=== PATIENT | male | born 1980 | race Caucasian/White ===

== ENCOUNTER 2024-01-13 04:24 | Emergency (ER) | payer SELFPAY ==
[2024-01-13 04:27] VITALS: BP 143/95; PULSE 83; RESP 16; TEMP 36.5; O2SAT 98; BMI 16.9
--- NOTE | 2024-01-13 04:39 | HMH.EDGENADL ---
Discharge Plan Disposition Patient Disposition: Home, Self-Care Referrals Follow up/Referrals: Provider,Francisco, [Primary Care Provider] - See instructions Activity Restrictions/Add. Instructions Additional Instructions/Restrictions: Please follow-up with your primary care provider. Please return to the emergency department if you develop any new or worsening symptoms or become concerned for your health. Clinical Impressions Clinical Impression: Acute pain of left foot Stand Alone Forms Stand Alone Forms: Work/School Release Discharge ED Provider: Johan Whitt General Adult HPI General Chief complaint: PAIN Stated complaint: left foot pain Time Seen by Provider: 01/13/24 04:25 Mode of Arrival: Ambulatory Source of Information: Patient Limitations: No Limitations Description of Symptoms (Recalled from ER Triage Doc. by RN): Pt presents to ED for L foot pain. NKI Pt is A&O*4 History of Present Illness HPI narrative: 43-year-old male presents with atraumatic left foot pain for the last day or so. He denies any recent trauma, denies sprained ankle laceration etc. He denies any history of plantar fasciitis. She reports that the pain started initially on the bottom of his foot around in the balls of the feet . It now has moved up towards the ankle. 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 Related Data Allergies Allergy/AdvReac Type Severity Reaction Status Date / Time No Known Allergies Allergy Verified 01/13/24 04:37 [facility] Disclaimer: The information contained in this section may have been updated after the patient was seen, as this information can be updated by other users. Medical History (Updated 01/13/24 @ 04:41 by Johan Whitt MD) Diabetes Surgical History (Updated 01/13/24 @ 04:39 by Mary Hanson RN) Hx of appendectomy Social History Smoking Status: Current every day smoker alcohol intake: never current occupational status: employed Travel in the last 8 weeks: None ROS Obtained: Yes All systems reviewed & no additional complaints except as documented Physical Exam General General appearance: alert and in no apparent distress Head Head exam: atraumatic and normocephalic Eye Eye exam: Present normal appearance, PERRL and EOMI ENT ENT exam: Present normal oropharynx and normal external ear exam Neck Neck exam: Present normal inspection and full ROM Chest Chest inspection: Present normal inspection and symmetric chest wall rise; Absent tenderness Respiratory Respiratory exam: Present normal lung sounds bilaterally; Absent respiratory distress Cardiovascular Cardiovascular exam: Present regular rate and normal rhythm Abdominal Exam Abdominal exam: Present soft; Absent distention, tenderness or guarding Extremities Exam Extremities exam: Present normal inspection and other (Mild tenderness palpation of the plantar foot, no swelling, laceration, erythema, full range of motion of the ankle intact with some pain. Normal neurovascular function.); Absent edema or joint swelling Back Exam Back exam: Present normal inspection; Absent tenderness Neurological Exam Neurological exam: Present alert and oriented X3; Absent motor sensory deficit Psychiatric Psychiatric exam: Present normal affect and normal mood Skin Skin exam: Present warm, dry and normal color Lymphatic Lymphatic Findings: no adenopathy Medical Decision Making Medical Records Medical records reviewed: Yes I reviewed the patient's medical records. Chris Inquiry Pt receiving controlled substance: No Chris was queried for this patient: No Vital Signs: 01/13/24 04:27 01/13/24 04:49 Temperature 97.7 F 97.7 F Temperature Source Oral Pulse Rate 78 Pulse Rate [Left] 83 Respiratory Rate 16 16 Blood Pressure 143/95 H Blood Pressure [Right Arm] 143/95 H Blood Pressure Mean [Right Arm] 111 02 Sat by Pulse Oximetry 98 Oxygen Delivery Method Room Air Lab Data Lab results reviewed: Yes I reviewed the patient's lab results. 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 Exam is completely benign. Differential diagnosis includes but limited to fracture dislocation, overuse injury, arthritis, plantar fasciitis, gout. I offered the patient radiographs of the foot which he declined. I provided the patient instructions regarding symptomatic care and return precautions. Patient was given referral information for PCP. Procedures Risk/Benefits of Procedure(s) Were Explained: Yes Critical Care Critical Care Time Critical Care Time: No
[2024-01-13 04:49] VITALS: BP 143/95; PULSE 78; RESP 16; TEMP 36.5; O2SAT 97
== END 2024-01-13 05:08 | disposition home or self-care (01) ==
LOC: ER 05:01
PROVIDERS: Emergency Provider Emergency Medicine
DX: M79.672 Pain in left foot (principal); F17.210 Nicotine dependence, cigarettes, uncomplicated
CPT/HCPCS: 99282

== ENCOUNTER 2024-04-13 18:18 | Emergency (ER) | payer BC, SELFPAY ==
[2024-04-13 18:29] VITALS: BP 151/92; PULSE 108; RESP 16; TEMP 36.5; O2SAT 96; BMI 31.2
[2024-04-13] MEDS: KETOROLAC 30MG/ML VIAL 15 MG IM (18:57)
--- NOTE | 2024-04-13 19:25 | HMH.EDGENADL ---
Discharge Plan Disposition Patient Disposition: Home, Self-Care Prescriptions Prescriptions: New cefdinir 300 mg capsule 300 mg PO BID 7 Days Qty: 14 0RF Referrals Follow up/Referrals: Provider,Referral, [Primary Care Provider] - See instructions Activity Restrictions/Add. Instructions Additional Instructions/Restrictions: Call your family doctor to establish care for this visit to the emergency department and schedule follow-up within 48 hours to ensure improvement. If you have any worsening of your condition or any other concerning signs or symptoms, return to the emergency department or your primary care doctor for further evaluation. Clinical Impressions Clinical Impression: Acute epididymitis, Left testicular pain Instructions Patient Instructions: DI for Urinary Tract Infection (UTI), DI for Urinary Tract Infection in Children Discharge ED Provider: Isreal Romo General Adult HPI General Chief complaint: Urogenital-Male Stated complaint: testicle pain Time Seen by Provider: 04/13/24 18:30 Mode of Arrival: Ambulatory Source of Information: Patient Limitations: No Limitations Description of Symptoms (Recalled from ER Triage Doc. by RN): c/o testicular pain that started today around 1300. Pt denies any injury, swelling or redness that he is aware of. Pt states it hurts to sit or move. History of Present Illness HPI narrative: Please note that above description of symptoms, in this electronic medical record under categorization of recalled from ER triage doctor by RN are reflective of an initial nursing assessment, however, is not reflective of my full history and physical exam that was personally taken and clarified. Consequentially, this preceding description of symptoms, which may include the patient's categorized chief complaint in the EMR, do not reflect my personal clinical impression, and the ultimate description of history of present illness and patient stated complaints should be deferred to this section of the note. Unless stated otherwise or congruent with this section of the note, additional signs, symptoms, or incongruence should be interpreted as inaccurate with my clinical impression. Related Data Previous Rx's Medication Instructions Recorded cefdinir 300 mg capsule 300 mg PO BID 7 days #14 caps 04/13/24 Allergies Allergy/AdvReac Type Severity Reaction Status Date / Time No Known Allergies Allergy Verified 01/13/24 04:37 [facility] Disclaimer: The information contained in this section may have been updated after the patient was seen, as this information can be updated by other users. Medical History (Updated 04/13/24 @ 19:31 by Isreal Romo MD) Diabetes Surgical History (Updated 01/13/24 @ 04:39 by Mary Hanson RN) Hx of appendectomy Social History (Updated 01/13/24 @ 23:40 by Johan Whitt MD) Smoking Status: Current every day smoker alcohol intake: never current occupational status: employed Travel in the last 8 weeks: None ROS Obtained: Yes All systems reviewed & no additional complaints except as documented Physical Exam General General appearance: alert Head Head exam: atraumatic and normocephalic Eye Eye exam: Present normal appearance, PERRL and EOMI Neck Neck exam: Present normal inspection, full ROM and trachea midline Respiratory Respiratory exam: Absent respiratory distress, wheezes, stridor, accessory muscle use or prolonged expiratory phase Cardiovascular Cardiovascular exam: Present other (Pulses equal symmetric in upper and lower extremities) Abdominal Exam Abdominal exam: Present soft; Absent distention, tenderness or pulsatile mass exam: Present other (Per MDM) Extremities Exam Extremities exam: Absent edema Neurological Exam Neurological exam: Present alert, oriented X3 and CN II-XII intact; Absent motor sensory deficit Skin Skin exam: Present warm and dry; Absent diaphoresis or erythema Medical Decision Making Medical Records Medical records reviewed: Yes I reviewed the patient's medical records. Chris Inquiry Pt receiving controlled substance: No Chris was queried for this patient: No Vital Signs: 04/13/24 18:29 Temperature 97.7 F Temperature Source Oral Pulse Rate [Left Radial] 108 H Respiratory Rate 16 Blood Pressure [Right Arm] 151/92 H Blood Pressure Mean [Right Arm] 111 Blood Pressure Source [Right Arm] Automatic Cuff Blood Pressure Position [Right Arm] Sitting 02 Sat by Pulse Oximetry 96 Oxygen Delivery Method Room Air Lab Data Lab Results 04/13/24 19:35: Urine Color Yellow, Urine Appearance Clear, Urine pH 6.0, Ur Specific [place] >= 1.030, Urine Protein Negative, Urine Glucose (UA) 3+, Urine Ketones Trace, Urine Blood 1+, Urine Nitrate Negative, Urine Bilirubin Negative, Urine Urobilinogen 1.0, Ur Leukocyte Esterase Negative, Urine RBC 5-10, Urine WBC None, Ur Squamous Epith Cells Occasional, Calcium Oxalate Crystal Trace, Urine Bacteria Trace Orders (Tests/Meds): ED MEDICATIONS Discontinued Medications Generic Name Dose Route Start Last Admin Trade Name Freq PRN Reason Stop Dose Admin Cefdinir 300 mg 04/13/24 19:26 Cefdinir 300mg Capsule PO 04/13/24 19:27 ONCE ONE Ketorolac Tromethamine 15 mg 04/13/24 18:41 04/13/24 18:56 Ketorolac 30mg/Ml Vial IV 04/13/24 18:42 Not Given ONCE ONE Ketorolac Tromethamine 15 mg 04/13/24 18:55 04/13/24 18:57 Ketorolac 30mg/Ml Vial IM 04/13/24 18:56 15 mg ONCE ONE Administration ORDERS Category Date Time Status POCUS Point of Care (ER Only) Stat Exams 04/13/24 18:33 Ordered UA [Urinalysis and Microscopic] Stat Lab 04/13/24 19:35 Completed Medical Decision Narrative: 43-year-old male no relevant medical history presenting with testicular pain. Started about 1 PM a couple hours prior to this visit. Is 2.5 out of 10, has been progressively worsening. No nausea, vomiting, abdominal pain, dysuria, hematuria, flank pain, fevers or chills. No trauma to the area. Patient has not taken anything for the pain. Notably, patient states that he just overcame viral illness with cough, congestion, rhinorrhea, etc. a couple days prior to this visit. History was obtained via conversation with patient. On arrival, patient hemodynamically stable, alert, oriented x4, appropriate, GCS 15, moving all extremities spontaneously, pupils equal and reactive to light. Full physical exam performed and significant for bilateral testicles appear normal. No overlying scrotal changes. Left testicle slightly larger than the right, with tenderness posteriorly at epididymis. Cremasteric reflex intact. No penile discharge at urethral meatus. Differential includes orchitis, epididymitis, torsion, UTI, testicular fracture, among others. Patient given IM Toradol 15 mg. Urinalysis ordered, independently interpreted and significant for no acute concern for UTI. Bedside [id number] ultrasound with small hydrocele around left testicle, but good blood flow to bilateral testicles. Patient also has inflammation pain at posterior aspect of testicle with hyperemia concerning for epididymitis. Patient denies any inability or chance of STI. Gonorrhea/chlamydia sent out of abundance of caution. Cefdinir given 300 mg. Because patient at baseline without signs or symptoms of clinical decompensation, deemed appropriate for discharge. Results were relayed to patient who voiced understanding and were agreeable to outpatient management and follow up. I discussed my clinical impression with patient and answered all questions. At this time, the evidence for any other entities in the differential is insufficient to warrant any further testing or ED observation. This was explained as well. Advisory was given that persistent or worsening symptoms require further evaluation. I confirmed the understanding of this discussion. Operations Support Analyst disclaimer Much of this encounter note is an electronic casting machine operator automatic spoken language to printed text. Electronic casting machine operator automatic of the spoken language may permit errors. Although I have reviewed the note, some errors may still exist. Procedures Limited Ultrasound Indication:: Limited testicular ultrasound Indication: Testicular pain and swelling Identified structures: Location: Left testicle, right testicle Findings: Small left-sided hydrocele. Hyperemia of posterior testicle concerning for epididymitis. No evidence of torsion with good blood flow bilaterally. Impression: Hyperemia of the epididymis and small left hydrocele. Images were saved to permanent archive The study was technically adequate Testicular/scrotal CPT Codes: 10152-78 This study was performed by me, and I personally interpreted all images/videos. Based on my clinical judgement, these images were added and did not necessitate further imaging. Critical Care Critical Care Time Critical Care Time: No
--- NOTE | 2024-04-13 19:37 | PC.NURSE ---
UA sent on this patient.
[2024-04-13 19:41] LABS: Microscopic, Urine URINE MICROSCOPIC (MICROSCOPIC)
[2024-04-13 19:44] LABS: Appearance,Urine CLEAR (Clear); Bilirubin,Urine Negative (Negative); Blood, Urine 1+ (Negative); Color,Urine YELLOW (Yellow); Glucose,Urine (UA) 3+ (Negative); Ketones,Urine TRACE (Negative); Leukocyte Esterase,Urine Negative (Negative); Nitrate,Urine Negative (Negative); Protein,Urine Negative (Negative); Specific Gravity, Urine >= 1.030 (1.005-1.030)
[2024-04-13 19:52] LABS: Bacteria,Urine Trace /lpf; Calcium Oxalate Crystals,Urine Trace /lpf; Squamous Epithelial Cell,Urine Occasional #/hpf (0-5)
[2024-04-13] MEDS: CEFDINIR 300MG CAPSULE 300 MG PO (20:10)
[2024-04-13 20:16] VITALS: BP 148/89; PULSE 90; RESP 18; TEMP 36.7; O2SAT 98
[2024-04-16 07:34] LABS: Neisseria gonorrhoeae, NAA Negative (Negative)
== END 2024-04-13 20:17 | disposition home or self-care (01) ==
LOC: UTC 18:22 → ER 18:24
PROVIDERS: Emergency Provider Emergency Medicine
DX: N45.1 Epididymitis (principal); N43.3 Hydrocele, unspecified; N50.812 Left testicular pain; F17.210 Nicotine dependence, cigarettes, uncomplicated
CPT/HCPCS: 81001; 87491; 87591; 96372; 96374; 99284; J1885

== ENCOUNTER 2024-05-11 16:11 | Emergency (ER) | payer BC, SELFPAY ==
[2024-05-11 16:20] VITALS: BP 137/92; PULSE 92; RESP 20; TEMP 36.7; O2SAT 98; BMI 36.2
--- NOTE | 2024-05-11 16:54 | ED_ITS ---
Discharge Plan Disposition Patient Disposition: Home, Self-Care Condition: Good Prescriptions Prescriptions: No Action metformin 500 mg Tablet 500 mg PO DAILY Referrals Follow up/Referrals: Amaya Leigh APRN [Primary Care Provider] - See instructions Activity Restrictions/Add. Instructions Additional Instructions/Restrictions: Follow up with your Family Doctor as we discussed Straight to ER if any life threatening symptoms Monitor your diet, get plenty exercise, maintain healthy diet, watch your feet for wounds, open sores, scratches or abrasions Follow up with Podiatry for good foot health Straight to ER if any life threatening symptoms Clinical Impressions Clinical Impression: Tingling of both feet Instructions Patient Instructions: DI for Numbness/Tingling Print Language Print Language: Lao Discharge ED Provider: Keara Mccrary Jony [facility] General Stated complaint: bilateral feet pain Mode of Arrival: Ambulatory Source of Information: Patient Limitations: No Limitations Time Seen by Provider: 05/11/24 17:01 Description of Symptoms (Recalled from Triage Doc. by RN): PATIENT C/O BURNING AND TINGLING TO BILATERAL FEET THAT STARTED THIS MORNING. PATIENT REPORTS HE IS A TYPE 2 DIABETIC HEENT Symptoms (Recalled from RN notes): No Resp Symptoms (Recalled from RN notes): No Skin Symptoms (Recalled from RN notes): No MS Symptoms (Recalled from RN notes): Yes Functional Status (Recalled from RN notes): WNL History of Present Illness Provider Complaint: Patient states that he is a type 2 diabetic and recently started back on his Metformin states he has appointment with new PCP on Friday but this morning he woke up and had some tingling and burning in his feet states it is better now but wanted him to come in Related Data Home Medications ?Medication ?Instructions ?Recorded ?Confirmed metformin 500 mg tablet 500 mg PO DAILY 05/11/24 05/11/24 Allergies Allergy/AdvReac Type Severity Reaction Status Date / Time No Known Allergies Allergy Verified 01/13/24 04:37 Worker's Comp Is this a Worker's Comp case?: No [facility] Disclaimer: The information contained in this section may have been updated after the patient was seen, as this information can be updated by other users. Medical History (Updated 05/11/24 @ 17:08 by Keara Mccrary APRN) Diabetes Surgical History (Updated 01/13/24 @ 04:39 by Mary Hanson RN) Hx of appendectomy Social History (Updated 01/13/24 @ 23:40 by Johan Whitt MD) Smoking Status: Current every day smoker alcohol intake: never current occupational status: employed Travel in the last 8 weeks: None ROS Obtained: Yes All systems reviewed & no additional complaints except as documented and Yes Systems reviewed as appropriate & no additional complaints except as documented Constitutional Constitutional: Reports system reviewed and no additional complaints, except as documented and Reports as per HPI ENT Ears, Nose, Mouth, and Throat: Reports system reviewed and no additional complaints, except as documented and Reports as per HPI Cardiovascular Cardiovascular: Reports system reviewed and no additional complaints, except as documented and Reports as per HPI Respiratory Respiratory: Reports system reviewed and no additional complaints, except as documented and Reports as per HPI Musculoskeletal Musculoskeletal: Reports system reviewed and no additional complaints, except as documented and Reports as per HPI Comments: burning and tingling in feet this morning and on and off today Physical Exam General General appearance: alert and in no apparent distress ENT ENT exam: Present mucous membranes moist Respiratory Respiratory exam: Present normal lung sounds bilaterally; Absent respiratory distress or wheezes Cardiovascular Cardiovascular exam: Present regular rate, normal rhythm and normal heart sounds Expanded Lower Extremity Exam bilateral: Hip/Pelvis exam: Present normal inspection Upper leg exam: Present normal inspection Knee exam: Present normal inspection Lower leg exam: Present normal inspection Ankle exam: Present normal inspection; Absent tenderness, swelling, abrasion, laceration, ecchymosis or erythema Foot/toe exam: Present normal inspection and other (no open wounds, no scratchs, no discoloration, +pedal pulses bilaterally); Absent tenderness, swelling, abrasion, laceration, ecchymosis, deformity, dislocation, erythema or puncture wound Neurovascular/Tendon exam: Present normal capillary refill; Absent pulse deficit or pallor Gait: observed and normal Neurological Exam Neurological exam: Present alert, oriented X3 and normal gait Medical Decision Making Chris Inquiry Pt receiving controlled substance: No Chris was queried for this patient: No Vital Signs: 05/11/24 16:20 Temperature 98.1 F Temperature Source Oral Pulse Rate [Left Brachial] 92 H Respiratory Rate 20 Blood Pressure [Left Arm] 137/92 H Blood Pressure Mean [Left Arm] 107 Blood Pressure Source [Left Arm] Automatic Cuff Blood Pressure Position [Left Arm] Sitting 02 Sat by Pulse Oximetry 98 Oxygen Delivery Method Room Air Medical Decision Narrative: Patient states he is a type 2 diabetic and had been without Metformin for awhile and recently started taking it again States had some tingling and burning on and off in bilateral feet this morning, discussed with patient had and advised does not check his blood sugar at home, recommended FSBS in the [facility] due to the possiblity of continued elevated blood sugar causing neuropathy and patient declined FSBS and labs in the [facility] discussed transfer to the ED and he declined that also 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 and only came in today because his made him and has appointment with new PCP on Friday and 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 Patient informed that needed labs and other testing if he was having tingling and burning on and off in feet as this could be caused by his diabetes and concern that it may be elevated today and he still declined agreed to have simple foot check, feet examined and no open wounds, discoloration and denies loss of sensation able to feel light touch, +pedal pulses noted Patient given education that he needed to be complaint with his medications to help prevent complications from Diabetes and to keep his A1C and blood sugars within range and needed to see PCP regularly for this Patient states again he did not want to have his FSBS or labs/testing done today in [facility] only came to satisfy his and would see PCP as scheduled and agreed to discuss symptoms with them if they was still occuring Patient educated to have healthy diet, exercise to help with diabetes and patient was given teaching on checking feet for discolorations, ulcers, blisters, and wounds that may occur if he is having loss of feeling/sensation and again he advised none at this time. Patient given strict return precautions to the ED and patient left the [facility]
[2024-05-11 17:13] VITALS: BP 137/92; PULSE 92; RESP 20; TEMP 36.7; O2SAT 98
== END 2024-05-11 17:14 | disposition home or self-care (01) ==
PROVIDERS: Emergency Provider Nurse Practitioner; PCP Nurse Practitioner Family
DX: R20.2 Paresthesia of skin (principal); M79.671 Pain in right foot; M79.672 Pain in left foot; E11.9 Type 2 diabetes mellitus without complications; Z79.84 Long term (current) use of oral hypoglycemic drugs
CPT/HCPCS: 99203; 99212; G0463

== ENCOUNTER 2024-08-08 04:43 | Emergency (ER) | payer BC, SELFPAY ==
[2024-08-08 04:44] VITALS: BP 159/110; PULSE 74; RESP 18; TEMP 36.6; O2SAT 100; BMI 31.2
[2024-08-08] MEDS: OXYCODONE 5MG IMMEDIATE RELEASE TABLET 5 MG PO (05:05)
--- NOTE | 2024-08-08 05:08 | ED_ITS ---
Discharge Plan Disposition Patient Disposition: Home, Self-Care Condition: Good Prescriptions Prescriptions: New amoxicillin-pot clavulanate 875-125 mg tablet 1 tab PO BID Qty: 14 0RF No Action metformin 500 mg Tablet 500 mg PO DAILY Referrals Follow up/Referrals: Amaya Leigh APRN [Primary Care Provider] - See instructions Activity Restrictions/Add. Instructions Additional Instructions/Restrictions: You were evaluated in the ER and are appropriate for discharge at this time. Take the prescribed antibiotics as directed, do not skip doses, do not stop taking them early. Use the provided dental balls if needed for pain, put it on for 1 hour then remove for 1 hour. Do not eat, drink, or sleep with these in. Do not start using these dental balls until your nerve block wears off Take Tylenol, ibuprofen if needed for pain, do not exceed the recommended dose on the bottle. Drink plenty of water and eat a snack each time you take these medications to avoid side effects. Make an appointment with a dentist for immediate evaluation. You can also use the dental urgent care clinic, Friday through Friday at 7:30 AM, first come first served. This week they are close August 09 and (Friday and Friday). Their address is: [place] [address] Return to the ER with new, worsening, or otherwise concerning symptoms. Clinical Impressions Clinical Impression: Fracture of tooth Print Language Print Language: Haitian Discharge ED Provider: Ernst Neely General Adult HPI General Chief complaint: Dental/Oral Stated complaint: tooth pain Time Seen by Provider: 08/08/24 04:51 Mode of Arrival: Ambulatory Source of Information: Patient Limitations: No Limitations Description of Symptoms (Recalled from ER Triage Doc. by RN): Tooth broke at around 4:30pm and won't stop hurting History of Present Illness HPI narrative: 44-year-old male presents to the ER with broken right mandibular molar pain. Patient reports he was at work eating when his tooth broke. He states he has had significant pain since that time and has tried multiple things including Tylenol, Goody powder on the tooth. Patient reports a history of diabetes on metformin with which she is poorly compliant, no other daily medications. No known drug allergies. Patient denies any other complaints. He has not had fevers, chills, difficulty swallowing, difficulty breathing, chest pain, shortness of breath, nausea, vomiting, diarrhea, headache. Related Data Home Medications ?Medication ?Instructions ?Recorded ?Confirmed metformin 500 mg tablet 500 mg PO DAILY 05/11/24 05/11/24 Previous Rx's ?Medication ?Instructions ?Recorded amoxicillin 875 mg-potassium 1 tab PO BID #14 tabs 08/08/24 clavulanate 125 mg tablet Allergies Allergy/AdvReac Type Severity Reaction Status Date / Time No Known Allergies Allergy Verified 01/13/24 04:37 [facility] Disclaimer: The information contained in this section may have been updated after the patient was seen, as this information can be updated by other users. Medical History (Updated 08/08/24 @ 05:32 by Ernst Neely MD) Diabetes Surgical History (Updated 01/13/24 @ 04:39 by Mary Hanson RN) Hx of appendectomy Social History (Updated 01/13/24 @ 23:40 by Johan Whitt MD) Smoking Status: Current every day smoker alcohol intake: never current occupational status: employed Travel in the last 8 weeks: None ROS Obtained: Yes Systems reviewed as appropriate & no additional complaints except as documented ROS per HPI Physical Exam General General appearance: alert and in no apparent distress Head Head exam: atraumatic and normocephalic Eye Eye exam: Present PERRL and EOMI ENT ENT exam: Present mucous membranes moist Expanded ENT Exam Teeth numbered Image: 2 1. Fractured (tooth 29 fractured at gumline) Comment: Otherwise normal oropharynx, no tonsillomegaly or erythema, no sublingual or submandibular swelling, airway patent Neck Neck exam: Present normal inspection and full ROM Chest Chest inspection: Present symmetric chest wall rise Respiratory Respiratory exam: Absent respiratory distress or stridor Cardiovascular Cardiovascular exam: Present regular rate and normal rhythm Extremities Exam Extremities exam: Present full ROM Neurological Exam Neurological exam: Present alert and oriented X3; Absent motor sensory deficit Psychiatric Psychiatric exam: Present normal affect and normal mood Skin Skin exam: Present warm and dry Medical Decision Making Medical Records Screening: Per USPSTF and CDC recommendations, given the prevalence of disease in our region, it is our hospital?s policy to screen for HIV and viral Hepatitis for all patients aged 18 and over and those with ongoing risk factors. Chris Inquiry Pt receiving controlled substance: No Vital Signs: 08/08/24 04:44 08/08/24 05:28 Temperature 97.9 F Temperature Source Oral Pulse Rate 87 Pulse Rate [Right Radial] 74 Respiratory Rate 18 Blood Pressure 164/96 H Blood Pressure [Right Arm] 159/110 H Blood Pressure Mean [Right Arm] 126 Blood Pressure Source [Right Arm] Automatic Cuff Blood Pressure Position [Right Arm] Supine 02 Sat by Pulse Oximetry 100 97 Oxygen Delivery Method Room Air Orders (Tests/Meds): ED MEDICATIONS Discontinued Medications Generic Name Dose Route Start Last Admin Trade Name Frecatalina PRN Reason Stop Dose Admin Amoxicillin 500 mg 08/08/24 05:23 Amoxicillin 500mg Capsule PO 08/08/24 05:24 ONCE ONE Amoxicillin/Clavulanate Potassium 1 each 08/08/24 05:24 08/08/24 05:26 Amoxicillin/Clavulanate Potassium 875/125mg Tablet PO 08/08/24 05:25 1 each ONCE ONE Administration Bupivacaine HCl 50 mg 08/08/24 05:02 08/08/24 05:25 Bupivacaine 0.5% 30ml Vial IJ 08/08/24 05:03 50 mg ONCE ONE Administration Lidocaine HCl 15 ml 08/08/24 05:06 08/08/24 05:14 Lidocaine 2% Viscous Purnima 15ml Udc PO 08/08/24 05:07 15 ml ONCE ONE Administration Oxycodone HCl 5 mg 08/08/24 05:06 08/08/24 05:05 Oxycodone 5mg Immediate Release Tablet PO 08/08/24 05:07 5 mg ONCE ONE Administration Medical Decision Narrative: In summary, this 44-year-old male with diabetes on metformin presents to the emergency department today with dental fracture and pain. On initial evaluation patient is hemodynamically stable, afebrile, exam only notable for fractured tooth 29 in the right mandibular molars with pain, there is no swelling, abscess, or other abnormality appreciated. Differential diagnosis includes but is not limited to dental fracture, I considered possibility of abscess or Lane's angina but have no evidence of these on exam. I discussed options for pain management with the patient and recommended inferior alveolar nerve block. I discussed risks and benefits with the patient and he consented to this procedure which was performed, see procedure note for details. Patient tolerated injection of 10mL (50mg) bupivacaine 0.5% well which is well within the range of appropriate dose for his size and below his max dose to avoid toxicity. He had significant improvement of symptoms. He had also received oxycodone single dose in the ER for pain and Augmentin for antibiotic prophylaxis since he is a diabetic with higher risk of infection especially since the tooth is fractured at the gumline with dentin exposed, no pulp appreciated. Patient was given dental balls for continued use at home. He was given explicit instructions on how to use these as well as other symptom management. I encouraged the patient to follow closely with a dentist and provided information on the dental urgent care. Patient was given instructions on symptomatic management, follow up instructions, and return precautions for the emergency department. Patient indicated understanding and was discharged in stable condition. Procedures Risk/Benefits of Procedure(s) Were Explained: Yes (written consent provided by pt) Nerve Block Nerve Block 1: Time out performed: Yes Local Anesthetic: bupivacaine 0.5% Amount of anesthesia used (mL): 10 Side: Right Intraoral Nerve Block: inferior alveolar Procedure Successful: Yes (Anesthesia of the tongue and analgesia of the right mandibular molars) Patient Tolerated Procedure: well Complications: none Additional Comments: Identified landmarks, performed aspiration upon insertion of the needle, no blood was drawn back, infiltration of bupivacaine was tolerated well by patient with significant analgesia achieved Critical Care Critical Care Time Critical Care Time: No
[2024-08-08] MEDS: LIDOCAINE 2% VISCOUS SOL 15ML UDC 15 ML PO (05:14)
[2024-08-08] MEDS: BUPIVACAINE 0.5% 30ML VIAL 50 MG IJ (05:25)
[2024-08-08] MEDS: AMOXICILLIN/CLAVULANATE POTASSIUM 875/125MG TABLET 1 EACH PO (05:26)
[2024-08-08 05:28] VITALS: BP 164/96; PULSE 87; O2SAT 97
[2024-08-08 05:32] VITALS: BP 164/92; PULSE 72; RESP 18; TEMP 36.6; O2SAT 98
== END 2024-08-08 05:33 | disposition home or self-care (01) ==
PROVIDERS: Emergency Provider Emergency Medicine; PCP Nurse Practitioner Family
DX: K08.89 Other specified disorders of teeth and supporting structures (principal); S02.5XXA Fracture of tooth (traumatic), initial encounter for closed fracture
CPT/HCPCS: 64400; 99283; C9144

== ENCOUNTER 2024-10-08 15:06 | Emergency (ER) | payer BC, SELFPAY ==
[2024-10-08 15:15] VITALS: BP 158/97; PULSE 101; RESP 22; TEMP 37.6; O2SAT 97; BMI 33.7
[2024-10-08 15:36] LABS: UTC Influenza A Antigen Negative (Negative); UTC Influenza B Antigen Negative (Negative)
--- NOTE | 2024-10-08 15:42 | EXP.UTC ---
Discharge Plan Disposition Patient Disposition: Home, Self-Care Condition: Good Prescriptions Prescriptions: New ibuprofen [IBU] 800 mg tablet 800 mg PO Q8HP PRN (Reason: Moderate Pain) Qty: 30 0RF ondansetron 4 mg Tablet,Disintegrating 4 mg PO Q8H PRN (Reason: Nausea) Qty: 12 0RF amoxicillin-pot clavulanate 875-125 mg Tablet 1 tab PO Q12H Qty: 20 0RF benzonatate 100 mg capsule 100 mg PO TIDP PRN (Reason: Cough) Qty: 30 0RF Referrals Follow up/Referrals: Amaya Leigh APRN [Primary Care Provider] - See instructions Activity Restrictions/Add. Instructions Additional Instructions/Restrictions: Drink plenty of fluids. Take tylenol or ibuprofen for pain or fever. Take the medications as directed. Follow up with your regular doctor. GO TO THE ER FOR ANY WORSENING SYMPTOMS Clinical Impressions Clinical Impression: Acute viral syndrome, Dental abscess, Pain, dental Instructions Patient Instructions: DI for Tooth Abscess, DI for Viral Syndrome, Ondansetron, Amoxicillin and Clavulanic Acid Print Language Print Language: Maori Discharge ED Provider: Lenard Valero [facility] General Stated complaint: fever, body aches Mode of Arrival: Ambulatory Source of Information: Patient and Spouse Limitations: No Limitations Time Seen by Provider: 10/08/24 15:42 Description of Symptoms (Recalled from Triage Doc. by RN): PATIENT C/O FEVER, BODY ACHES, AND VOMITING THAT STARTED THIS MORNING. PATIENT ALSO REPORTS PAIN TO BOTTOM LEFT TOOTH HEENT Symptoms (Recalled from RN notes): Yes Resp Symptoms (Recalled from RN notes): No Skin Symptoms (Recalled from RN notes): No MS Symptoms (Recalled from RN notes): No Functional Status (Recalled from RN notes): WNL History of Present Illness Provider Complaint: He states that for the past several days he has had worsening dental pain. He states that since earlier today he has ran a fever and had chills also. Related Data Previous Rx's ?Medication ?Instructions ?Recorded amoxicillin 875 mg-potassium 1 tab PO Q12H #20 tabs 10/08/24 clavulanate 125 mg tablet benzonatate 100 mg capsule 100 mg PO TIDP PRN Cough #30 caps 10/08/24 ibuprofen 800 mg tablet (IBU) 800 mg PO Q8HP PRN Moderate Pain 10/08/24 #30 tabs ondansetron 4 mg disintegrating 4 mg PO Q8H PRN Nausea #12 tabs 10/08/24 tablet Allergies Allergy/AdvReac Type Severity Reaction Status Date / Time No Known Allergies Allergy Verified 01/13/24 04:37 Worker's Comp Is this a Worker's Comp case?: No [facility] Disclaimer: The information contained in this section may have been updated after the patient was seen, as this information can be updated by other users. Medical History (Updated 10/08/24 @ 16:13 by Lenard Valero APRN) Diabetes Surgical History (Updated 01/13/24 @ 04:39 by Mary Hanson RN) Hx of appendectomy Social History (Updated 01/13/24 @ 23:40 by Johan Whitt MD) Smoking Status: Current every day smoker alcohol intake: never current occupational status: employed Travel in the last 8 weeks: None Have you lived/traveled outside [place] in past 30 days?: No Contact w/someone who lives/traveled outside [place] past 30 days?: No Exposure to someone with infectious disease in past 14 days?: No Do you have a fever (greater than 100.4 F or 38 C)?: Yes Have you tested positive for COVID-19: No Exposed to someone with COVID-19 in past 14 days?: No Do you have a sore throat?: No Do you have a cough?: No Do you have any weakness?: No Do you have any diarrhea?: No Are you experiencing any unusual bleeding?: No Do you have any muscle aches/pain?: No Do you have any abdominal pain?: No Are you experiencing loss of taste or smell?: No ROS Obtained: Yes All systems reviewed & no additional complaints except as documented Constitutional Constitutional: Reports chills and Reports fever(s) Eyes Eyes: Denies eye discharge ENT Ears, Nose, Mouth, and Throat: Reports as per HPI Cardiovascular Cardiovascular: Denies chest pain Respiratory Respiratory: Denies chest congestion and Reports cough Gastrointestinal Gastrointestingal: Reports nausea; Denies abdominal pain, constipation, cramping, diarrhea or vomiting Musculoskeletal Musculoskeletal: Denies arthralgias Integumentary/Breasts Skin/Breast: Denies rash Neurologic Neurologic: Denies paresthesias Physical Exam General General appearance: alert and in no apparent distress Head Head exam: atraumatic, normocephalic and normal inspection Eye Eye exam: Present normal appearance, PERRL and EOMI ENT ENT exam: Present mucous membranes moist, TM's normal bilaterally and normal external ear exam Expanded ENT Exam Nose exam: Absent sinus tenderness Nasal speculum exam: Bilateral: normal Mouth exam: Present normal external inspection; Absent drooling Teeth exam: Present dental caries, fractured tooth # and dental tenderness # Throat exam: Present normal inspection; Absent tonsillar erythema, tonsillomegaly or tonsillar exudate Neck Neck exam: Present normal inspection, full ROM and trachea midline; Absent meningismus or lymphadenopathy Chest Chest inspection: Present normal inspection and symmetric chest wall rise; Absent tenderness Respiratory Respiratory exam: Present normal lung sounds bilaterally; Absent respiratory distress Cardiovascular Cardiovascular exam: Present regular rate and normal rhythm; Absent JVD Abdominal Exam Abdominal exam: Present soft and normal bowel sounds; Absent distention, tenderness or guarding Extremities Exam Extremities exam: Present normal inspection, full ROM and normal capillary refill; Absent calf tenderness Back Exam Back exam: Present normal inspection; Absent tenderness Neurological Exam Neurological exam: Present alert and oriented X3 Psychiatric Psychiatric exam: Present normal affect and normal mood Skin Skin exam: Present warm, dry, intact and normal color Lymphatic Lymphatic Findings: no adenopathy Medical Decision Making Medical Records Medical records reviewed: No I reviewed the patient's medical records. Screening: Per USPSTF and CDC recommendations, given the prevalence of disease in our region, it is our hospital?s policy to screen for HIV and viral Hepatitis for all patients aged 18 and over and those with ongoing risk factors. Chris Inquiry Pt receiving controlled substance: No Vital Signs: 10/08/24 15:15 Temperature 99.7 F H Temperature Source Oral Pulse Rate [Left Brachial] 101 H Respiratory Rate 22 Blood Pressure [Left Arm] 158/97 H Blood Pressure Mean [Left Arm] 117 Blood Pressure Source [Left Arm] Automatic Cuff Blood Pressure Position [Left Arm] Sitting 02 Sat by Pulse Oximetry 97 Oxygen Delivery Method Room Air Lab Data Lab Results 10/08/24 15:15: Influenza Type A Ag Negative, Influenza Type B Ag Negative
[2024-10-08 16:03] VITALS: BP 158/97; PULSE 101; RESP 22; TEMP 37.6; O2SAT 97
[2024-10-08 16:23] LABS: Coronavirus 19, PCR Not Detected (NotDetected); Influenza A, PCR Not Detected (NotDetected); Influenza B, PCR Not Detected (NotDetected)
== END 2024-10-08 16:22 | disposition home or self-care (01) ==
PROVIDERS: Emergency Provider Nurse Practitioner Family; PCP Nurse Practitioner Family
DX: B34.9 Viral infection, unspecified (principal); K04.7 Periapical abscess without sinus; K08.89 Other specified disorders of teeth and supporting structures
CPT/HCPCS: 87636; 87804; 99213; G0381

== ENCOUNTER 2024-12-08 11:04 | Emergency (ER) | payer BC, SELFPAY ==
[2024-12-08 11:13] VITALS: BP 142/73; PULSE 81; RESP 15; TEMP 36.6; O2SAT 97; BMI 28.1
--- NOTE | 2024-12-08 11:13 | ED_ITS ---
Discharge Plan Disposition Patient Disposition: Home, Self-Care Condition: Good Prescriptions Prescriptions: No Action No Known Home Medications Referrals Follow up/Referrals: Beau Bella MD [Staff Physician] - See instructions Provider,MD Francisco [Primary Care Provider] - See instructions Activity Restrictions/Add. Instructions Additional Instructions/Restrictions: Your glucose was significantly elevated here in the emergency department, indicating that your diabetes is very uncontrolled. You will need to be on medication to help control it. I highly advise you to call Dr. Bella's office to establish care with a primary care physician and get an appointment as soon as possible to control your glucose better. Call this number as soon as you can to schedule an appointment: [phone] If you develop any new or worsening symptoms, such as chest pain, abdominal pain, nausea and vomiting, fever, or if you become concerned for your health for any reason, return to the emergency department for evaluation Clinical Impressions Clinical Impression: Hyperglycemia, Acute pain of right shoulder, Headache Stand Alone Forms Stand Alone Forms: Work/School Release Print Language Print Language: Serbian Discharge ED Provider: Miky Sandoval General Adult HPI General Chief complaint: PAIN Stated complaint: right shoulder pain, headache Time Seen by Provider: 12/08/24 12:09 History of Present Illness HPI narrative: Rufus Grewal is a 44y male with a history of diabetes mellitus who presents to the emergency department for complaints of sudden onset right shoulder pain and a mild left-sided headache. Patient states that he was sitting at home watching TV this morning when he developed pain in his right posterior shoulder. He states that he subsequently developed a mild left sided headache that he feels is behind both of his eyes. He does note that he has not been sleeping well and feels like his headache may be related to that. He denies any recent trauma or strenuous physical activity. He denies any chest pain, shortness of breath, abdominal pain, nausea, vomiting or diarrhea. He states that he has been in his normal state of health otherwise and denies any fevers. He denies any cardiac history. Related Data Home Medications ?Medication ?Instructions ?Recorded ?Confirmed No Known Home Medications 12/08/24 12/08/24 Allergies Allergy/AdvReac Type Severity Reaction Status Date / Time No Known Allergies Allergy Verified 12/08/24 11:40 [facility] Disclaimer: The information contained in this section may have been updated after the patient was seen, as this information can be updated by other users. Medical History (Updated 12/08/24 @ 14:04 by Miky Sandoval MD) Diabetes Surgical History (Updated 01/13/24 @ 04:39 by Mary Hanson RN) Hx of appendectomy Social History (Updated 01/13/24 @ 23:40 by Johan Whitt MD) Smoking Status: Current every day smoker alcohol intake: never current occupational status: employed Travel in the last 8 weeks: None Have you lived/traveled outside US in past 30 days?: No Contact w/someone who lives/traveled outside US past 30 days?: No Exposure to someone with infectious disease in past 14 days?: No Do you have a fever (greater than 100.4 F or 38 C)?: No Have you tested positive for COVID-19: No Exposed to someone with COVID-19 in past 14 days?: No Do you have a sore throat?: No Do you have a cough?: No Do you have any weakness?: No Do you have any diarrhea?: No Are you experiencing any unusual bleeding?: No Do you have any muscle aches/pain?: No Do you have any abdominal pain?: No Are you experiencing loss of taste or smell?: No ROS Obtained: Yes Systems reviewed as appropriate & no additional complaints except as documented Physical Exam General General appearance: alert and in no apparent distress Head Head exam: atraumatic Eye Eye exam: Present normal appearance ENT ENT exam: Present normal external ear exam Neck Neck exam: Present full ROM Chest Chest inspection: Present symmetric chest wall rise Respiratory Respiratory exam: Present normal lung sounds bilaterally; Absent respiratory distress Cardiovascular Cardiovascular exam: Present regular rate and normal rhythm Abdominal Exam Abdominal exam: Present soft; Absent tenderness or guarding exam: Present deferred Extremities Exam Extremities exam: Present normal inspection Expanded Upper Extremity Exam Right: Comment: Mild tenderness to palpation over the right posterior shoulder but no deformity or swelling is appreciated. Full range of motion at the shoulder intact. Back Exam Back exam: Present normal inspection Neurological Exam Neurological exam: Present alert and oriented X3 Psychiatric Psychiatric exam: Present normal affect Skin Skin exam: Present warm and dry Medical Decision Making Medical Records Screening: Per USPSTF and CDC recommendations, given the prevalence of disease in our region, it is our hospital?s policy to screen for HIV and viral Hepatitis for all patients aged 18 and over and those with ongoing risk factors. Chris Inquiry Pt receiving controlled substance: No Vital Signs: 12/08/24 11:13 12/08/24 13:00 12/08/24 14:06 Temperature 97.9 F 98 F 98.2 F Temperature Source Oral Oral Pulse Rate 82 74 Pulse Rate [Right] 81 Respiratory Rate 15 14 20 Blood Pressure 122/72 139/77 Blood Pressure [Left Arm] 142/73 H Blood Pressure Mean [Left Arm] 96 Blood Pressure Source Automatic Cuff Blood Pressure Source [Left Arm] Automatic Cuff Blood Pressure Position Sitting Blood Pressure Position [Left Arm] Sitting 02 Sat by Pulse Oximetry 97 99 Oxygen Delivery Method Room Air Room Air Room Air Lab Data Lab Results 12/08/24 11:33: WBC 5.9, RBC 5.51, Hgb 15.4, Hct 46.3, MCV 84.0, MCH 27.9, MCHC 33.3, RDW 12.5, Plt Count 263, MPV 9.7, Neut % (Auto) 59.2, Lymph % (Auto) 30.1, Harper % (Auto) 8.8, Eos % (Auto) 0.7, Baso % (Auto) 0.7, Neut # (Auto) 3.5, Lymph # (Auto) 1.8, Harper # (Auto) 0.5, Eos # (Auto) 0.0, Baso # (Auto) 0.0, Sodium 129 L, Potassium 4.4, Chloride 100, Carbon Dioxide 21 L, Anion Gap 12.4, BUN 12, C reatinine 0.60 L, Estimated Creat Clear 232, Estimated GFR 148, Est GFR ( Amer) 179, Glucose 576 H*, Calcium 8.9, Total Bilirubin 0.2, AST 28, ALT 33, Alkaline Phosphatase 70, Troponin I < 0.01, Total Protein 6.6, Albumin 4.1, Globulin 2.5, Albumin/Globulin Ratio 1.6, HCV Ab GRISELDA w/Rflx PCR Qn Negative, HIV Ag/Ab Combo Qual Negative 12/08/24 13:10: Urine Color Yellow, Urine Appearance Clear, Urine pH 5.5, Ur Specific [place] 1.010, Urine Protein Negative, Urine Glucose (UA) 4+, Urine Ketones Negative, Urine Blood Negative, Urine Nitrate Negative, Urine Bilirubin Negative, Urine Urobilinogen 0.2, Ur Leukocyte Esterase Negative 12/08/24 11:33 12/08/24 11:33 Orders (Tests/Meds): ED MEDICATIONS Discontinued Medications Generic Name Dose Route Start Last Admin Trade Name Nuzhat PRN Reason Stop Dose Admin Insulin Human Lispro 5 unit 12/08/24 12:47 12/08/24 12:55 Humalog 100 Units/Ml 10ml Vial (Ssi) SUBCUT 12/08/24 12:48 5 unit ONCE ONE Administration Ketorolac Tromethamine 15 mg 12/08/24 11:20 12/08/24 11:26 Ketorolac 30mg/Ml Vial IV 12/08/24 11:21 15 mg ONCE ONE Administration ORDERS Category Date Time Status Shoulder XR right miminum 2 views [XR shoulder RT min Exams 12/08/24 11:20 Completed 2V] Stat CBC w/Auto Diff [Complete Blood Count Auto Diff] Stat Lab 12/08/24 11:33 Completed CMP [Comprehensive Metabolic Panel] Stat Lab 12/08/24 11:33 Completed HIV Combo Stat Lab 12/08/24 11:33 Completed Hepatitis C Ab Qual. W/ RFX Stat Lab 12/08/24 11:33 Completed Troponin I Stat Lab 12/08/24 11:33 Completed UA [Urinalysis and Microscopic] Stat Lab 12/08/24 13:10 Completed ECG Data Tracing #1: I reviewed this ECG and interpreted as documented below: Medical Decision Narrative: Rufus Grewal is a 44y male with a history of diabetes mellitus who presents to the emergency department for complaints of sudden onset right shoulder pain and a mild left-sided headache. Patient states that he was sitting at home watching TV this morning when he developed pain in his right posterior shoulder. He states that he subsequently developed a mild left sided headache that he feels is behind both of his eyes. He does note that he has not been sleeping well and feels like his headache may be related to that. He denies any recent trauma or strenuous physical activity. He denies any chest pain, shortness of breath, abdominal pain, nausea, vomiting or diarrhea. He states that he has been in his normal state of health otherwise and denies any fevers. He denies any cardiac history. On arrival, patient is mildly hypertensive but heart rate within normal limits and breathing comfortably on room air with appropriate oxygen saturation. Afebrile. Physical exam, stated above, revealed an overall well- appearing male in no distress. He has a mild tenderness over the right posterior shoulder but no deformity and full range of motion of the shoulder intact. Cardiopulmonary exam is unremarkable. The remainder of his physical exam is grossly unremarkable as well. Differential diagnosis includes, but is not limited to: ACS, musculoskeletal injury, fracture, referred pain, among others. Workup in the emergency department included: CBC with differential, CMP, troponin, urinalysis, right shoulder x-ray Right shoulder x-ray was interpreted by me personally. No acute fracture or soft tissue swelling. No dislocation. See radiology report for details. Laboratory studies showed troponin of less than 0.01. No leukocytosis. No anemia. Significantly elevated glucose at 576 and corrected sodium of 137. Potassium normal at 4.4. CMP otherwise unremarkable and nonactionable without ZEENAT. Urinalysis showed 4+ glucose but no evidence of infection. Patient states that he does not currently have a primary care physician and takes glucose gold , which is [id number] for his diabetes. He states that he was diagnosed with diabetes in 2022 and was tried on metformin, however he could not tolerate it due to diarrhea. He reports that he does not regularly check his glucose at home. Given his glucose is nearly 600 here in the emergency department, will treat with 5 units of regular insulin and recheck his glucose. He was offered admission to initiate treatment for his uncontrolled diabetes mellitus given he does not have a primary care physician, however he declined at this time and would prefer to seek care from a primary care physician. He has repeat blood glucose had dropped into the 400s 1 hour after insulin was given. Patient is being referred to Dr. Bella and was instructed to call him as soon as possible to set up an appointment as he will likely need insulin or other medications to help control his glucose more closely. Return precautions were given. All questions were answered. He demonstrated understanding and was in agreement with this plan. He was then discharged from the emergency department in stable condition. Critical Care Critical Care Time Critical Care Time: No
--- NOTE | 2024-12-08 11:17 | PC.NURSE ---
DR QUINONES AT BEDSIDE
--- NOTE | 2024-12-08 11:20 | XR_ITS ---
FINAL REPORT CLINICAL HISTORY: Right shoulder pain denies injury, states he was sitting in recliner and right shoulder started hurting FINDINGS: RIGHT SHOULDER Three views demonstrate no acute fracture or dislocation. The visualized joint spaces are normally aligned. There are mild hypertrophic changes of the acromioclavicular joint. The soft tissues are unremarkable. IMPRESSION: No acute process. Reviewed, Interpreted and Dictated by Daryn Vergara MD Transcribed by Victoria Payne Authenticated and [facility]
--- NOTE | 2024-12-08 11:25 | ECG_ITS ---
APPROVED REPORT Exam: Resting ECG HR:79 bpm ECG Measurements Heart Rate 79 AXES FL 159 P 52 QRSd 83 QRS 25 QT 342 T 59 QTc 376 Conclusion SINUS RHYTHM INDETERMINATE AXIS POSSIBLE RIGHT VENTRICULAR CONDUCTION DELAY [RSR (QR) IN V1/V2] BORDERLINE ECG Electronically signed by : IMELDA BANUELOS, 12/10/2024 10:54:06
[2024-12-08] MEDS: KETOROLAC 30MG/ML VIAL 15 MG IV (11:26)
--- NOTE | 2024-12-08 11:38 | PC.NURSE ---
patient reports history of being diabetic, not taking any meds for this
[2024-12-08 11:43] LABS: Basophils % 0.7 % (0.1-2.0); Eosinophils % 0.7 % (0.1-12.0); Hematocrit 46.3 % (42.0-52.0); Hemoglobin 15.4 g/dL (14.1-18.0); Lymphocytes # 1.8 K/mm3 (0.7-4.5); Lymphocytes % 30.1 % (10-50); Mean Corpuscular HGB Conc 33.3 g/dL (31.8-35.4); Mean Corpuscular Hemoglobin 27.9 pg (27.0-31.2); Mean Platelet Volume 9.7 fl (7.4-10.4); Monocytes # 0.5 K/mm3 (0.1-1.0); Monocytes % 8.8 % (1.7-9.3); Neutrophils # 3.5 K/mm3 (1.8-7.8); Neutrophils % 59.2 % (37.0-80.0); Platelet Count 263 K/mm3 (142-424); Red Blood Count 5.51 M/mm3 (4.60-6.20); Red Cell Distribution Width 12.5 % (11.5-17.5); White Blood Count 5.9 K/mm3 (4.8-10.8)
[2024-12-08 11:57] LABS: Alanine Aminotransferase 33 U/L (12-78); Albumin Level 4.1 g/dl (3.5-5.0); Alkaline Phosphatase 70 U/L (38-126); Anion Gap 12.4 mEq/L (5-15); Aspartate Amino Transferase 28 U/L (17-59); Bilirubin,Total 0.2 mg/dl (0.2-1.3); Blood Urea Nitrogen 12 mg/dl (9-20); Calcium 8.9 mg/dl (8.4-10.2); Carbon Dioxide 21 mmol/L (22.0-30.0); Chloride 100 mmol/L (98-107); Creatinine Clearance Estimated 232 mL/min (50-200); Estimated Glomerular Filt Rate 148 ml/min (>60); GFR (African American) 179 ML/MIN (>60); Potassium 4.4 mmoL/L (3.5-5.1); Sodium 129 mmol/L (136-145)
[2024-12-08 11:59] LABS: Glucose 576 mg/dl (74-100)
--- NOTE | 2024-12-08 12:03 | PC.NURSE ---
PRASHANTH briggs aware of critical glucose lab
[2024-12-08 12:12] LABS: Albumin/Globulin Ratio 1.6 (1.1-1.8); Globulin 2.5 g/dL (1.3-3.2); Total Protein,Serum 6.6 g/dl (6.3-8.2)
[2024-12-08] MEDS: humaLOG 100 UNITS/ML 10ML VIAL (SSI) 5 UNIT SUBCUT (12:55)
[2024-12-08 13:00] VITALS: BP 122/72; PULSE 82; RESP 14; TEMP 36.6; O2SAT 99
[2024-12-08 13:25] LABS: HIV Combo NEGATIVE (Negative)
[2024-12-08 13:33] LABS: Hepatitis C Ab Qual. W/ RFX NEGATIVE (Negative)
[2024-12-08 13:34] LABS: Microscopic, Urine URINE MICROSCOPIC (MICROSCOPIC)
--- NOTE | 2024-12-08 14:00 | PC.NURSE ---
fsbs 415.
[2024-12-08 14:06] VITALS: BP 139/77; PULSE 74; RESP 20; TEMP 36.8; O2SAT 97
[2024-12-08 14:10] LABS: Appearance,Urine Clear (Clear); Color,Urine Yellow (Yellow)
[2024-12-08 14:11] LABS: Bilirubin,Urine Negative (Negative); Blood, Urine Negative (Negative); Glucose,Urine (UA) 4+ (Negative); Ketones,Urine Negative (Negative); Leukocyte Esterase,Urine Negative (Negative); Nitrate,Urine Negative (Negative); PH,Urine 5.5 (5.0-8.5); Protein,Urine Negative (Negative); Urobilinogen,Urine 0.2 EU/dl (0.2)
[2024-12-08 15:34] LABS: Troponin I < 0.01 ng/ml (0.00-0.034)
== END 2024-12-08 14:15 | disposition home or self-care (01) ==
PROVIDERS: Emergency Provider Student in an Organized Health Care Education/Training Program
DX: R73.9 Hyperglycemia, unspecified (principal); M25.511 Pain in right shoulder; R51.9 Headache, unspecified; Z72.0 Tobacco use
CPT/HCPCS: 73030; 80053; 81001; 84484; 85025; 86803; 87389; 93005; 96372; 96374; 99284; J1885

== ENCOUNTER 2025-04-17 15:15 | Emergency (ER) | payer OTHER, SELFPAY ==
--- OUTSIDE RECORDS SUMMARY | 2024-06-05 05:00 | XMS_ITS ---
Author Organization [facility] Address [address] [place] [address] Care Team Providers Care Simulation Developer Name Role Phone Alecia Feldman M.D. Primary Care Provider Unava ilable Migration, Provider Unavailable Unavailable REASON FOR VISIT EMR-Randall Encounters Encounter Location Date Provider Diagnosis [facility] [address] [place] [address] 06/05/2024 Provider Migration Plan Of Treatment No Information Progress Notes * ALECIA GARYDOB: [birth year] (44 yo M)Acc No.[id number]:06/05/2024 Patient: Patricia ALECIA LYNCH :1980 A ge:43 Y S ex:Male Phone: Address:[address], [address] Subjective: * Chief Complaints: * E MR-Randall * * Date:
--- OUTSIDE RECORDS SUMMARY | 2024-06-06 05:00 | XMS_ITS ---
Author Organization [facility] Address [address] [place] [address] Care Team Providers Care Barrel Maker Name Role Phone Alecia Feldman M.D. Primary Care Provider Unava ilable Migration, Provider Unavailable Unavailable REASON FOR VISIT EMR-Randall Encounters Encounter Location Date Provider Diagnosis [facility] [address] [place] [address] 06/06/2024 Provider Migration Plan Of Treatment No Information Progress Notes * ALECIA GARYDOB: [birth year] (44 yo M)Acc No.[id number]:06/06/2024 Patient: Patricia ALECIA LYNCH :1980 A ge:43 Y S ex:Male Phone: Address:[address] [place], [address] Subjective: * Chief Complaints: * E MR-Randall * Medical History: Problems: Problem , Status: active * * Date:
[2025-04-17 15:25] VITALS: BP 145/87; PULSE 97; RESP 18; TEMP 36.9; O2SAT 98; BMI 31.2
--- NOTE | 2025-04-17 15:29 | XR_ITS ---
PROCEDURE INFORMATION: Exam: XR Right Ankle Exam date and time: 04/17/2025 3:41 PM Age: 44 years old Clinical indication: Injury or trauma; Other: Axial load fall TECHNIQUE: Imaging protocol: Radiologic exam of the right ankle. Views: 3 or more views. COMPARISON: CR XR TIBIA FIBULA RT 2V 04/17/2025 3:41 PM FINDINGS: Bones/joints: Normal. No acute fracture identified. Soft tissues: Normal. IMPRESSION: No acute findings.
--- NOTE | 2025-04-17 15:29 | XR_ITS ---
PROCEDURE INFORMATION: Exam: XR Right Tibia and Fibula Exam date and time: 04/17/2025 3:41 PM Age: 44 years old Clinical indication: Injury or trauma; Other: Axial load fall distal pain TECHNIQUE: Imaging protocol: Radiologic exam of the right tibia and fibula. Views: 2 views. COMPARISON: CR XR ANKLE RT MIN 3V 04/17/2025 3:41 PM FINDINGS: Bones/joints: Normal. No acute fracture identified. Soft tissues: Normal. IMPRESSION: No acute findings.
--- NOTE | 2025-04-17 15:30 | HMH.EDGENADL ---
Discharge Plan Disposition Patient Disposition: Home, Self-Care Prescriptions Prescriptions: No Action No Known Home Medications Referrals Follow up/Referrals: Richie Forde DO [Staff Physician, Orthopedics] - See instructions Activity Restrictions/Add. Instructions Additional Instructions/Restrictions: At this time it was felt you are safe to be discharged home. If new or worsening symptoms please do not hesitate to return the emergency department. Please bear weight as tolerated on the affected foot and if your pain lasts longer than 1 week please call and schedule an appointment with Dr. Forde as soon as you are able. Clinical Impressions Clinical Impression: Right ankle sprain Print Language Print Language: Georgian Discharge ED Provider: Quang Patel General Adult HPI General Chief complaint: Fall Stated complaint: AO 04/17/25 1445 injuy right foot Time Seen by Provider: 04/17/25 15:20 History of Present Illness HPI narrative: Patient is a 44-year-old male with no pertinent past medical history presents emerged part for evaluation of traumatic injury sustained to his right foot. Patient was climbing a makeshift ladder when he heard a large noise up in a loft when he yohan to the top of the loft he saw a large bobcat which lurched at him causing him to let go of the ladder and resultant axial load force to the right foot. He has had limited weightbearing since and complains only of trauma to his right foot. Did not strike his head, no proximal leg pain no back pain no other extremity pain no loss conscious no anticoagulants or bleeding diathesis. Please note that above description of symptoms, in this electronic medical record under categorization of recalled from ER triage doctor by RN are reflective of an initial nursing assessment, however, is not reflective of my full history and physical exam that was personally taken and clarified. Consequentially, this preceding description of symptoms, which may include the patient's categorized chief complaint in the EMR, do not reflect my personal clinical impression, and the ultimate description of history of present illness and patient stated complaints should be deferred to this section of the note. Unless stated otherwise or congruent with this section of the note, additional signs, symptoms, or incongruence should be interpreted as inaccurate with my clinical impression. Related Data Home Medications ?Medication ?Instructions ?Recorded ?Confirmed No Known Home Medications 12/08/24 12/08/24 Allergies Allergy/AdvReac Type Severity Reaction Status Date / Time amoxicillin Allergy Swelling Verified 04/17/25 15:31 of Lip/Tongue/Throat PFSH [facility] Disclaimer: The information contained in this section may have been updated after the patient was seen, as this information can be updated by other users. Medical History (Updated 04/17/25 @ 16:04 by Quang Patel MD) Diabetes Surgical History (Updated 01/13/24 @ 04:39 by Mary Hanson RN) Hx of appendectomy Social History (Updated 01/13/24 @ 23:40 by Johan Whitt MD) Smoking Status: Current every day smoker alcohol intake: never current occupational status: employed Travel in the last 8 weeks?: None Have you lived/traveled outside US in past 30 days?: No Contact w/someone who lives/traveled outside US past 30 days?: No Exposure to someone with infectious disease in past 14 days?: No Do you have a fever (greater than 100.4 F or 38 C)?: No Have you tested positive for COVID-19?: No Exposed to someone with COVID-19 in past 14 days?: No Do you have a sore throat?: No Do you have a cough?: No Do you have any weakness?: No Do you have any diarrhea?: No Are you experiencing any unusual bleeding?: No Do you have any muscle aches/pain?: No Do you have any abdominal pain?: No Are you experiencing loss of taste or smell?: No ROS Obtained: Yes Systems reviewed as appropriate & no additional complaints except as documented Physical Exam General General appearance: alert and in no apparent distress Head Head exam: atraumatic and normocephalic Eye Eye exam: Present PERRL and EOMI ENT ENT exam: Present mucous membranes moist Neck Neck exam: Present normal inspection Chest Chest inspection: Present normal inspection and symmetric chest wall rise Respiratory Respiratory exam: Absent respiratory distress Cardiovascular Cardiovascular exam: Present regular rate and normal rhythm Extremities Exam Extremities exam: Present other (Mild swelling and tenderness over the right medial and lateral malleolus. Palpable dorsal pedal pulse. No tenderness over the distal foot.) Neurological Exam Neurological exam: Present alert Psychiatric Psychiatric exam: Present normal affect Skin Skin exam: Present warm and dry Medical Decision Making Medical Records Screening: Per USPSTF and CDC recommendations, given the prevalence of disease in our region, it is our hospital?s policy to screen for HIV and viral Hepatitis for all patients aged 18 and over and those with ongoing risk factors. Chris Inquiry Pt receiving controlled substance: No Vital Signs: 04/17/25 15:25 Temperature 98.5 F Temperature Source Oral Pulse Rate [Right] 97 H Respiratory Rate 18 Blood Pressure [Right Arm] 145/87 H Blood Pressure Mean [Right Arm] 106 02 Sat by Pulse Oximetry 98 Oxygen Delivery Method Room Air Orders (Tests/Meds): ED MEDICATIONS Discontinued Medications Generic Name Dose Route Start Last Admin Trade Name Nuzhat PRN Reason Stop Dose Admin Acetaminophen 1,000 mg 04/17/25 15:29 04/17/25 15:37 Acetaminophen 500mg Tab PO 04/17/25 15:30 1,000 mg ONCE ONE Administration Ketorolac Tromethamine 30 mg 04/17/25 15:29 04/17/25 15:37 Ketorolac 30mg/Ml Vial IM 04/17/25 15:30 30 mg ONCE ONE Administration ORDERS Category Date Time Status Tibia/fibula XR right 2 views [XR tibia fibula RT 2V] Exams 04/17/25 15:29 Taken Stat XR ankle RT min 3V Stat Exams 04/17/25 15:29 Taken Medical Decision Narrative: In summary patient is a 44-year-old male with past medical history as Above who presents emergency department for evaluation of traumatic injury sustained to his right foot. Patient is hemodynamically stable and nontoxic-appearing upon open, afebrile. Based on history and physical exam limited trauma survey will be conducted with a plain film of the right tib-fib and ankle. No tenderness over the lumbar spine for transmitted axial load to become concerned for imaging although it was considerably deferred at this time. Show inventions include Tylenol and Toradol. X-rays informally interpreted by me no acute significantly displaced fracture. Given this patient was placed in James wrap and given crutches and will be weightbearing as tolerated. Critical Care Critical Care Time Critical Care Time: No
[2025-04-17] MEDS: ACETAMINOPHEN 500MG TAB 1000 MG PO (15:37)
[2025-04-17] MEDS: KETOROLAC 30MG/ML VIAL 30 MG IM (15:37)
--- OUTSIDE RECORDS SUMMARY | 2025-04-17 15:39 | XMS_ITS | Patient Health Record ---
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 Name Role Phone Diego Rodo Primary Care Provider [phone] Allergies Allergen (clinical drug ingredient) Drug/Non Drug Allergy documented on EMR Reaction Allergy Type Onset Date Status aspirin Aspirin nausea Drug Allergy Active Medications Medication SIG (Take, Route, Frequency, Duration) Notes Start Date End Date Status metFORMIN HCl 850 MG TAKE 1 TABLET BY MO UTH TWICE DAILY WITH A MEAL; Duration: 30 Active Ibuprofen 600 MG 1 tablet with food o r milk as needed Orally Every 6 hrs; Duration: 7 days 04/12/2020 Not-Taking metFORMIN HCl 850 MG 1 tablet with a arcenio l Orally Twice a day; Duration: 30 days Active GlipiZIDE 5 MG 1 tablet in the morn ing Orally Once a day; Duration: 30 day(s) Active Sarles 3 1200 MG 1 capsule Orally Onc e a day; Duration: 30 day(s) 12/17/2021 Active Denies taking over the counter and herbal meds. Act shanti Atorvastatin Calcium 40 MG 1 tablet WITH EVENING MEAL Orally Twice a day; Duration: 30 day(s) 12/17/2021 Active Social History Tobacco Use: Social History Observation Description Date Details (start date - stop date) Current Smoker NA - NA Tobacco Use: Question Answer Notes Are you a smoker? Status: current smoker Are you interested in quitting? not ready to ben t Are you an other tobacco user? No Problems Problem Type SNOMED Code ICD Code Onset Dates Problem Status W/U Status Risk Notes Problem Hypertriglyceridemia (635927922) Hypertriglyceridemia (E78.1) Active confirmed Problem Body mass index 40+ - morbidly obese (676926689) BMI 40.0-44.9, adult (Z68.41) Active confirmed Problem Morbid obesity (324995628) Morbid obesity (E66.01) Active confirmed Problem Nicotine use disorde r (0577641582) Nicotine use disorder (F17.200) Active confirmed Problem Type II diabetes mellitus without complication (371771241) New onset type 2 diabetes mellitus (E11.9) Active confirmed Problem Nonrestorable cariou s tooth (disorder) (019372444) Nonrestorable tooth (K08.89) Active confirmed Problem Body mass index 40+ - severely obese (036869298) Body mass index [BMI] 40.0-44.9, adult (Z68.41) Active confirmed Plan Of Treatment Future Test Test Name Order Date *Basic Metabolic Panel (8) 03/25/2022 Medications Administered Medication Instructions Date of Administration Dosage Notes Lidocaine HCL 2% & Epi 1:100,000 04/12/2020 1.7 mL Lidocaine HCL 2% & Epi 1:100,000 04/12/2020 1.7 mL Medical (General) History Medical History History ICD Code HTN diabetes mallitus Surgical History Surgery Date(Month/Year) appendectomy 09/17 exploratory 1999 Hospitalization History Reason Date(Month/Year) chest pain 02/2022 exploratory surgery 1999 appendectomy 09/17
--- OUTSIDE RECORDS SUMMARY | 2025-04-17 15:39 | XMS_ITS | Patient Health Record ---
Author Organization [facility] Address [address] [place] [address] Care Team Providers Care Tare Weigher Name Role Phone Alecia Feldman M.D. Primary Care Provider Unava ilable Migration, Provider Unavailable Unavailable Reason For Referral No Information Encounters Encounter Location Date Provider Diagnosis [facility] [address] [place] [address] 06/05/2024 Provider Migration [facility] [address] [place] [address] 06/06/2024 Provider Migration Plan Of Treatment No Information Insurance Providers Payer Name Payer Address Payer Phone Subscriber Number Group Number Insured Name Patient Relationship to Insured Coverage Start Date Coverage End Date Self Pay [address] [place] [address] ALECIA GARY Self - patient is the insured
--- NOTE | 2025-04-17 15:43 | PC.NURSE ---
XRay at bedside.
[2025-04-17 16:21] VITALS: BP 141/82; PULSE 91; RESP 16; TEMP 37.2; O2SAT 96
== END 2025-04-17 16:23 | disposition home or self-care (01) ==
PROVIDERS: Emergency Provider Emergency Medicine
DX: S93.401A Sprain of unspecified ligament of right ankle, initial encounter (principal); M79.671 Pain in right foot; X50.9XXA Other and unspecified overexertion or strenuous movements or postures, initial encounter
CPT/HCPCS: 73590; 73610; 96372; 99283; J1885